=== PATIENT | female | born 1990 | race Caucasian/White ===

== ENCOUNTER 2019-03-09 17:28 | Emergency (ER) | payer OTHER ==
--- OUTSIDE RECORDS SUMMARY | 2019-03-09 17:33 | XMS REPORT | Continuity of Care Document ---
:1990 External Reference #:[id number] Author Name TRACEY Fontana Address [address] [place] [address] Care Team Providers Name Role Phone Rebecca Rice D.O. (Peggy) Care Team Information Archival Records Clerk Unavailable Hamlet Flynn M.D. Primary Care Physician Unavailable Payers Date Identification Numbers Payment Provider Subscriber Effective: 2018 Policy Number: [id number] Formerly [facility] [place] [facility] Group Number: [id number] Group Name: [place] [address] PayID: [id number] Problems Active Problems Provider Date Mild persistent asthma Ady Valentin M.D. Onset: 11/04/2018 Allergic rhinitis due to pollen Ady Valentin M.D. Onset: 11/04/2018 Allergic rhinitis Ady Valentin M.D. Onset: 04/28/2013 Allergic asthma without status asthmaticus Ady Valentin M.D. 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 Home Environment Lives in an older 1st floor apartment Home Environment There is no basement Home Environment Uses baseboard heating Home Environment Has a window air conditioner Home Environment The floors are wood Home Environment The home is not gissel Home Environment There are draperies in the home Home Environment 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 Home Environment Pillows are encased in an allergy proof case Home Environment Mattress is 5 years old Home Environment Mattress is encased in an allergy proof case Home Environment Water Source: City Smoke-Free Work is smoke-free Smoke-Free Home is smoke-free Pets None Can not be anywhere close to pets 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, 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 Hobbies Cooking Hobbies Hiking Hobbies Knitting Hobbies Music Hobbies Reading Hobbies Sports Hobbies Running ETOH Use Rarely consumes alcohol Tobacco Use Start: Unknown Patient has never smoked Recreational Drug Use Denies Drug Use Allergies, Adverse Reactions, Alerts Active Allergies Reaction Severity Comments Date Singular feet swelling 02/19/2012 Advair Diskus full body eczema for 2 weeks 11/14/2012 Medications Active Medications SIG Qnty Indications Ordering Date Provider Prednisone 40mg for 3 days, qs J30.1 Judy 03/06/2019 10mg Tablets 30mg for 3 days, Uldrich, [employer] INSPECTOR[employer] 20 mg for 3 days, 10mg for 3 days and 5mg for 2 days Guaifenesin ER 1 by mouth every 60tabs Judy 12/20/2018 1200mg 12 hours Uldrich, QUARANTINE INSPECTOR-C Tablets ER 12HR Dulera 2 puff twice a 8.800gm J45.30 Ady Valentin, 11/04/2018 200-5mcg/Act day M.D. Aerosol Zyrtec Allergy 1 every day 30tabs Unknown 10mg Tablets Benadryl Allergy 1 tab PO qHS Unknown 25mg Capsules Motrin Ib prn for headaches Unknown 200mg Tablets Levalbuterol HCL 1 inhaled every 6 120units Judy hours as needed Uldrich, QUARANTINE INSPECTOR-C 1.25mg/3ML Nebulizer for cough/wheeze or trouble breathing Multivitamins 1 po qd Unknown Tablets Fluticasone As needed Hamlet Flynn, Propionate Nasal M.D. [place] 50mcg/Act Suspension Levalbuterol Tartrate 2 puffs 15gm Judy inhalation q6 Uldrich, QUARANTINE INSPECTOR-C 45mcg/Act Aerosol hours as needed Tacrolimus Unknown 0.1% Ointment Betamethasone Bullis, Hamlet, Dipropionate M.DBenji 0.05% Ointment Triamcinolone Apply To Rash On Unknown Acetonide Face And Neck 0.1% Ointment Once To Twice Daily Until Resolved. Medications Administered in Office Medication SIG Qnty Indications Ordering Provider Date Injection Allergy Injection 02/21/2019 Injection Injection Allergy Injection 02/14/2019 Injection Injection Allergy Injection 02/07/2019 Injection Injection Allergy Injection 01/31/2019 Injection Injection Allergy Injection 01/24/2019 Injection Injection Allergy Injection 01/17/2019 Injection Injection Allergy Injection 01/10/2019 Injection Immunizations CPT Code Status Date Vaccine Lot # [id number] Given Unknown Influenza Vaccine Vital Signs Date Vital Result Comment 03/06/2019 10:33am Height 65.5 inches 5'5.50" Weight 142.00 lb Weight 64.411 kg Respiratory Rate 18 /min Heart Rate 76 /min O2 % BldC Oximetry 99 % BP Systolic 121 mmHg BP Diastolic 88 mmHg Asthma Control Test 13 BMI (Body Mass Index) 23.3 kg/m2 01/03/2019 10:11am Height 65.5 inches 5'5.50" Weight 143.00 lb Weight 64.865 kg Respiratory Rate 20 /min Heart Rate 100 /min O2 % BldC Oximetry 95 % BP Systolic 111 mmHg BP Diastolic 79 mmHg Asthma Control Test 24 Fractional Exhaled Nitric Oxide 10 BMI (Body Mass Index) 23.4 kg/m2 12/20/2018 10:17am Height 65.5 inches 5'5.50" Weight 142.00 lb Weight 64.411 kg Respiratory Rate 16 /min Heart Rate 96 /min O2 % BldC Oximetry 99 % BP Systolic 124 mmHg BP Diastolic 76 mmHg Asthma Control Test 20 BMI (Body Mass Index) 23.3 kg/m2 11/04/2018 10:10am Height 65.5 inches 5'5.50" Weight 139.00 lb Weight 63.050 kg Respiratory Rate 20 /min Heart Rate 105 /min O2 % BldC Oximetry 99 % BP Systolic 128 mmHg BP Diastolic 80 mmHg Asthma Control Test 13 Fractional Exhaled Nitric Oxide 11 BMI (Body Mass Index) 22.8 kg/m2 04/28/2013 3:25pm Height 65 inches 5'5" Weight 134.00 lb Weight 60.782 kg Respiratory Rate 16 /min Heart Rate 102 /min O2 % BldC Oximetry 99 % BMI (Body Mass Index) 22.3 kg/m2 11/28/2012 11:42am Height 65 inches 5'5" Weight 126.00 lb Weight 57.154 kg Respiratory Rate 16 /min Heart Rate 94 /min O2 % BldC Oximetry 98 % BP Systolic 118 mmHg BP Diastolic 65 mmHg BMI (Body Mass Index) 21.0 kg/m2 11/14/2012 11:51am Height 65 inches 5'5" Weight 142.00 lb Weight 64.411 kg Respiratory Rate 16 /min Heart Rate 96 /min O2 % BldC Oximetry 97 % BP Systolic 128 mmHg BP Diastolic 78 mmHg BMI (Body Mass Index) 23.6 kg/m2 Procedures Date Code Description Status 02/21/2019 55063 Injection Completed 02/14/2019 39220 Injection Completed 02/07/2019 25226 Injection Completed 01/31/2019 01158 Injection Completed 01/24/2019 15024 Injection Completed 01/17/2019 23228 Injection Completed 01/10/2019 04778 Injection Completed 01/06/2019 47858 Extract 1-10 Completed 01/03/2019 59113 Pre PFT Completed 01/03/2019 29886 Skin Test Scratch # Of Units ____ Completed 01/03/2019 41543 Nitric Oxide Gas Determination Completed 12/20/2018 35355 Pre PFT Completed 11/04/2018 46046 Nitric Oxide Gas Determination Completed 11/04/2018 05360 Pre PFT Completed 04/28/2013 97313 Oxygen Level - Pulse Oximiter Completed 11/28/2012 09992 Oxygen Level - Pulse Oximiter Completed 02/09/2012 24067 Oxygen Level - Pulse Oximiter Completed 02/09/2012 55908 Pulmonary Function Test Completed Encounters Type Date Location Provider Dx Diagnosis Office Visit 01/03/2019 Candice Juarez30.1 Allergic rhinitis due 10:20a QUARANTINE INSPECTOR-C to pollen J45.30 Mild persistent asthma, uncomplicated J30.81 Allergic rhinitis due to animal (cat) (dog) hair and dander J30.2 Other seasonal allergic rhinitis J30.89 Other allergic rhinitis Office Visit 12/20/2018 10:20a Candice Juarez30.1 Allergic rhinitis [employer]INE INSPECTOR-[employer] due to pollen J45.30 Mild persistent asthma, uncomplicated Office Visit 11/04/2018 10:00a Pia Valentin M.D. J30.1 Allergic rhinitis due to pollen J45.30 Mild persistent asthma, uncomplicated Office Visit 04/28/2013 3:20p Pia Valentin M.D. 493.00 Asthma Extrinsic Unspecified 477.9 Rhinitis Allergic Cause Unspec Office Visit 11/28/2012 11:40a [place] Ozzy Araiza, 493.00 Asthma Extrinsic M.D. Unspecified 477.9 Rhinitis Allergic Cause Unspec Office Visit 11/14/2012 11:40a [place] Ozzy Araiza, 493.00 Asthma Extrinsic M.D. Unspecified 466.0 Bronchitis Acute Office Visit 02/09/2012 10:00a [place] Sandy Banda, 691.8 Dermatitis Atopic & M.D. Related Conditions Other 693.1 Dermatitis Due To Food 493.00 Asthma Extrinsic Unspecified 477.9 Rhinitis Allergic Cause Unspec Plan of Treatment Future Appointment(s):04/21/2019 11:20 am - TRACEY Fontana at [id number]/2018 - GEN Fontana-CJ30.1 Allergic rhinitis due to hepsgqS60.2 Other seasonal allergic xhwgjzzpN45.81 Allergic rhinitis due to animal (cat) ( dog) hair and oobbucK97.30 Mild persistent asthma, uncomplicatedNew Medication: Prednisone 10 mgFollow up:1 month with EnoRecommendations:Continue all medications as prescribed.Refrain from wearing perfumes/scented colognes while visitingour office. Continue the Dulera 2 puffs twice a day Continue the Zyrtec daily Continue the Xopenex 2 puffs every 4 hours as needed for cough, shortness of breath, wheezing or chest congestion. She would like to start allergy shots Discussed the three ways in which allergies are managed: (1) avoidance measures; (2) medications; (3) allergy immunotherapy. Discussed environmental controls. -Dustmite control barriers are recommended for mattress and pillows. Make sure the product specifies a pore size rating of 2-5 microns. Bigger and unspecified pore sizes may not be effective. -Wash all bedding in hot water once weekly. -Keep bedroom humidity below 50%. Dust mites thrive well in high humidity. Discussed risks and benefits of immunotherapy.
[2019-03-09 17:42] VITALS: BP 140/86
[2019-03-09] MEDS ORDERED: Azithromycin TAB* 250 MG PO ONE (18:12)
--- NOTE | 2019-03-09 18:33 | UC ---
Respiratory Complaint HPI - HPI Summary HPI Summary: 4 DAYS AGO PATIENT DEVELOPED COUGH, SHORTNESS OF BREATH AND WHEEZE. NO FEVER, NAUSEA/VOMITING. HAS A HISTORY OF ASTHMA AND ALLERGIES. STATES HER INHALERS WERE NOT HELPING SO SHE SAW HER E COMMERCE MERCHANDISING COORDINATOR WHO STARTED HER ON PREDNISONE 3 DAYS AGO. SHE REPOERTS SHE HAD A NEGATIVE CXR BUT WAS OFFERED ANTIBIOTICS AT THAT TIME ANYWAY. SHE DECLINED. SHE STATES HER SYMPTOMS HAVE NOT IMPROVED AND WAS HOPING FOR A PRESCRIPTION FOR AN ANTIBIOTIC TODAY. - History of Current Complaint Chief Complaint: UCRespiratory Stated Complaint: SINUS CONGESTION Time Seen by Provider: 03/09/19 18:03 Hx Obtained From: Patient Hx Last Menstrual Period: [id number] Onset/Duration: Gradual Onset, Lasting Days, Still Present Timing: Constant Severity Initially: Moderate Severity Currently: Moderate Pain Intensity: 0 Pain Scale Used: 0-10 Numeric Character: Cough: Nonproductive Aggravating Factors: Deep Breaths Alleviating Factors: Bronchodilator Associated Signs And Symptoms: Positive: Dyspnea, Wheezing, URI, Nasal Congestion, Sinus Discomfort. Negative: Fever, Pleuritic Chest Pain - Allergies/Home Medications Allergies/Adverse Reactions: Allergies Allergy/AdvReac Type Severity Reaction Status Date / Time shellfish derived Allergy Intermediate Anaphylatic Verified 03/09/19 17:52 Shock levofloxacin [From Levaquin] Allergy See Comment Verified 03/09/19 17:52 loratadine [From Claritin] Allergy Vomiting Verified 03/09/19 17:52 montelukast [From Singulair] Allergy Swelling Verified 03/09/19 17:52 moxifloxacin Allergy Altered Verified 03/09/19 17:52 Mental Status wheat Allergy Rash Verified 03/09/19 17:52 multiple food allergies Allergy Intermediate Rash Uncoded 03/09/19 17:52 Home Medications: Home Medications Fluticasone NASAL SPRAY 50MCG* [Flonase NASAL SPRAY 50MCG*] 2 spray BOTH NARES DAILY 03/09/19 [History Confirmed 03/09/19] Mometasone/Formoter 200/5 MDI* [Dulera 200/5 MDI*] 2 puff INH BID 03/09/19 [ History Confirmed 03/09/19] Tiotropium CAP.INH* [Spiriva CAP.INH*] 1 cap.inh INH DAILY 03/09/19 [History Confirmed 03/09/19] guaiFENesin [Mucinex] 800 mg PO DAILY 03/09/19 [History Confirmed 03/09/19] PMH/Surg Hx/FS Hx/Imm Hx - Additional Past Medical History Additional PMH: ALLERGIES Respiratory History: Asthma - Surgical History Surgical History: None - Family History Known Family History: Positive: Non-Contributory - Social History Alcohol Use: None Substance Use Type: None Smoking Status (MU): Never Smoked Tobacco Review of Systems All Other Systems Reviewed And Are Negative: Yes Constitutional: Positive: Negative ENT: Positive: Nasal Discharge, Sinus Congestion Respiratory: Positive: Shortness Of Breath, Cough Cardiovascular: Positive: Negative Gastrointestinal: Positive: Negative Physical Exam Triage Information Reviewed: Yes Appearance: Well-Appearing, No Pain Distress, Well-Nourished Vital Signs: Initial Vital Signs Temp 98.4 F 03/09/19 17:36 Pulse 92 03/09/19 17:36 Resp 18 03/09/19 17:36 BP 140/86 03/09/19 17:36 Pulse Ox 100 03/09/19 17:36 Vital Signs Reviewed: Yes Eyes: Positive: Conjunctiva Clear ENT: Positive: Hearing grossly normal, Pharynx normal, TMs normal Neck: Positive: Supple, Nontender, No Lymphadenopathy Respiratory: Positive: No respiratory distress, No accessory muscle use, Decreased breath sounds, Other: - SPEAKING IN FULL SENTENCES WITH NO RESPIRATORY DISTRESS. Cardiovascular Exam: Normal Abdomen Description: Positive: Soft Musculoskeletal: Positive: No Edema Neurological: Positive: Alert Psychological: Positive: Age Appropriate Behavior Skin: Negative: Rashes Respiratory Course/Dx - Course Course Of Treatment: PATIENT IS TO CONTINUE HER PREDNISONE AND INHALERS PRESCRIBED. GIVEN HER UNDERLYING LUNG CONDITION AND THAT HER SYMPTOMS ARE NOT IMPROVING AT ALL WILL GO AHEAD AND COVER FOR INFECTIOUS PROCESS WITH AZITHROMYCIN. SHE WILL FOLLOW- UP WITH HER ASTHMA AND IMPREGNATOR. - Differential Dx/Diagnosis Provider Diagnosis: Asthma exacerbation, Acute bronchitis Discharge - Sign-Out/Discharge Documenting (check all that apply): Patient Departure All imaging exams completed and their final reports reviewed: No Studies - Discharge Plan Condition: Stable Disposition: HOME Prescriptions: Azithromycin 500 mg PO DAILY #4 tab Patient Education Materials: Asthma (ED), Acute Bronchitis (ED) Referrals: Rebecca Rice DO [Primary Care Provider] - If Needed Additional Instructions: WILL COVER FOR POSSIBLE INFECTIOUS PROCESS WITH AZITHROMYCIN ONCE DAILY FOR 5 DAYS. CONTINUE YOUR INHALERS AND PREDNISONE PRESCRIBED. GO TO THE ER WITHOUT FAIL IF YOU DEVELOP WORSENING SHORTNESS OF BREATH, FEVER OR ANY OTHER CONCERNING/WORSENING SYMPTOMS. FOLLOW-UP WITH YOUR ASTHMA SPECIALIST. - Billing Disposition and Condition Condition: STABLE Disposition: Home
== END 2019-03-09 18:24 | disposition home or self-care (01) ==
LOC: UCEAST 17:28
DX: J45.901 Unspecified asthma with (acute) exacerbation (principal)
CPT/HCPCS: 99202; A9270-GY; G0463